=== PATIENT | male | born 1965 | race African-American/Black ===

== ENCOUNTER 2016-10-21 16:30 | Emergency (ER) | payer MEDICAID, MEDICARE ==
[~2016-10-21] VITALS: Ht 175.3 cm; Wt 72.5 kg
[~2016-10-21 16:30] MED LIST: AMLO-511 PO; ATOR10TA84 PO; BUPR75TA3 PO; LURA20TA PO
[2016-10-21] MEDS ORDERED: CYCLOBENZAPRINE HCL 10 MG TABLET PO ONE (19:45)
[2016-10-21] MEDS ORDERED: KETOROLAC TROMETHAMINE 10 MG TABLET PO ONE (19:45)
[2016-10-21 22:17] VITALS: BP 132/73
[2016-10-22] MEDS ORDERED: BUPR-47 PO (06:51)
== END 2016-10-21 22:44 | disposition home or self-care (01) ==
LOC: EMS 16:38
DX: M54.2 Cervicalgia (principal); G89.29 Other chronic pain; J45.909 Unspecified asthma, uncomplicated; I10 Essential (primary) hypertension; F17.210 Nicotine dependence, cigarettes, uncomplicated; F12.90 Cannabis use, unspecified, uncomplicated
CPT/HCPCS: 72052; 99284